=== PATIENT | female | born 1975 | race Hispanic/Latino ===

== ENCOUNTER 2017-12-26 16:34 | Inpatient (IN) | payer OTHER ==
[~2017-12-26] VITALS: Ht 172.7 cm; Wt 90.7 kg
--- NOTE | 2017-12-26 17:15 | RADIOLOGY REPORT ---
EXAMINATION: CHEST 2 VIEWS CLINICAL INFORMATION: Cough, shortness of breath. COMPARISON: None. TECHNIQUE: PA and lateral views of the chest were obtained. FINDINGS: The cardiac silhouette is not enlarged. The mediastinal and hilar contours are unremarkable. There are neither pleural effusions nor pneumothoraces. There is a lateral segment right middle lobe infiltrate. The osseous structures are unremarkable. IMPRESSION: Lateral segment right middle lobe pneumonia. Recommendation is for a followup chest series to be obtained following treatment and/or resolution of symptoms to assure resolution of this appearance.
--- NOTE | 2017-12-26 17:26 | ED DYSPNEA/ASTHMA COMPLAINT ---
History of Present Illness General Chief Complaint: General Adult Stated Complaint: BIBA FOR PNEUMONIA Source: patient, family Exam Limitations: no limitations Vital Signs & Intake/Output Vital Signs & Intake/Output Vital Signs Date Time Temp Pulse Resp B/P B/P Pulse O2 O2 Flow FiO2 Mean Ox Delivery Rate 12/26 2220 98.5 76 18 108/70 90 Room Air 12/26 2156 Nasal 2.0L Cannula 12/26 2118 99.0 90 18 121/70 95 Room Air 12/26 1946 98.5 94 18 130/62 97 Room Air 12/26 1917 98 12/26 1644 98.8 86 15 103/70 98 Room Air Room Air ED Intake and Output 12/27 0000 12/26 1200 Intake Total 100 Output Total 200 Balance -100 Intake, Oral 100 Output, Urine 200 Patient 200 lb Weight Weight Reported by Patient Measurement Method Allergies Coded Allergies: ibuprofen (Intermediate, SWELLING AND HIVES 12/26/17) Reconcile Medications Amoxicillin/Potassium Clav (Amox-Clav 500-125 MG Tablet) 500 MG-125 MG TABLET 1 TAB PO TID ABX (Reported) Ondansetron (Zofran Odt) 4 MG TAB.RAPDIS 1 TAB SL TID PRN NAUSEA (Reported) Triage Note: PT BIBA FOR WORSENING SYMPTOMS OF PNEUMONIA. PT DIAGNOSED WITH PNA AT [facility] ON SUNDAY AND STARTED ON AUGMENTIN SUNDAY AND REPORTS SHE IS NOT FEELING ANY BETTER. HX OF PE IN PAST. Triage Nurses Notes Reviewed? yes Onset: Gradual Duration: day(s): Timing: recent history Severity: moderate : No Patient currently breastfeeds: No HPI: 42 yo female with hx of asthma, PNA, PE presents to ED for worsening of pneumonia symptoms and body pain. She was previously diagnosed with CAP after a visit to the ED on sunday and was given augmentin to take TID. She has been taking the medication since Sunday and denies getting any better. Today she presents with a constant pressure in her head and sinus since Sunday that radiates down to her neck, shoulders, and right arm with a sharp shooting pain. Patient admits that she has been vomiting since Sunday with up to three episodes per day. The vomit has been yellow in consistency and happens when she tries to eat. She has taken zofran for the nausea/vomiting this morning with some relief. Patient states that she has not been able to eat since Sunday but is able to tolerate liquids. She states that she also has dyspnea that gets worst with movement and talking. She also admits to having one episode of diarrhea that started this morning that was loose watery and yellow in color. She has a sharp pain in her back that gets worst with increased urination that started recently. She describes the pain as a burning sensation. Reports a productive cough with yellow flem along with chest pain. Admits to dizziness, nausea, fever, chills, cough, abdominal pain in her middle lower epigastrum, SOB, cough, diarrhea, fatigue, tinnitus, back pain, and dyspnea. She has tried taking nyquil and tylenol with codeine with no improvment. States that her daughter is recovering from a cough that she had recently before her symptoms started. (Mehreen Jackson) Past History Travel History Traveled to [place] past 21 day No Medical History Any Pertinent Medical History? see below for history Neurological: SPINAL MENINGITIS Cardiovascular: PE Respiratory: PNA Surgical History Surgical History: non-contributory Psychosocial History What is your primary language Icelandic Tobacco Use: Quit >30 days ago Family History Hx Contributory? No (Mehreen Jackson) Review of Systems Review of Systems Constitutional: Reports: see HPI, chills, fever, malaise, weakness. EENTM: Reports: see HPI, throat pain. Respiratory: Reports: see HPI, cough, short of breath, sputum production, wheezing. Cardiovascular: Reports: see HPI, chest pain. GI: Reports: see HPI, abdominal pain, diarrhea, nausea, vomiting. Genitourinary: Reports: see HPI, dysuria, frequency. Musculoskeletal: Reports: see HPI, back pain, joint pain, neck pain. Skin: Reports: no symptoms. Neurological/Psychological: Reports: see HPI, headache, tingling, weakness. Hematologic/Endocrine: Reports: no symptoms. Immunologic/Allergic: Reports: no symptoms. All Other Systems: Reviewed and Negative (Mehreen Jackson) Physical Exam Physical Exam General Appearance: well developed/nourished, alert, awake Head: atraumatic, normal appearance Eyes: Bilateral: normal appearance, PERRL, EOMI. Ears, Nose, Throat: normal pharynx, normal ENT inspection, hearing grossly normal Neck: normal inspection, supple, full range of motion Respiratory: bilateral expiratory wheezing, R>L, speaking is broken sentences Cardiovascular: tachycardia Gastrointestinal: normal bowel sounds, soft, no organomegaly, Mild diffuse tenderness without gaurding Extremities: normal inspection, normal range of motion Neurologic/Psych: awake, alert, oriented x 3 Skin: intact, normal color Core Measures ACS in differential dx? Yes CVA/TIA Diagnosis No Sepsis Present: No Sepsis Focused Exam Completed? No (Shruthi TOTH,Mehreen Carlton) Progress Differential Diagnosis: asthma, AMI, bronchitis, COPD, musculoskeletal pain, pericarditis, pulmonary embolism, pneumonia, unstable angina Plan of Care: Orders Procedure Date/time Status Full Liquid Diet 12/27 B Active CBC WITHOUT DIFFERENTIAL 12/27 599 Active BASIC ELECTROLYTES PLUS BUN&CR 12/27 599 Active Lab Add-on Test 12/26 2314 Active CULTURE,STOOL 12/26 230 Active LOWER RESPIRATORY CULTURE 12/26 2302 Active C.DIFFICILE 12/26 230 Active TRC EVALUATION (GEN) 12/26 230 Active OXYGEN SETUP (GEN) 12/26 230 Active Saline Lock 12/26 230 Active Pathway - chart 12/26 2300 Active House Staff 12/26 2301 Active Code Status 12/26 2301 Active STREP PNEUMO URINARY ANTIGEN 12/26 221 Complete LEGIONELLA URINARY ANTIGEN 12/26 2215 Complete Weight 12/26 2152 Active Vital Signs 12/26 2152 Active Teach/Educate 12/26 215 Active Pain Treatment and Response 12/26 215 Active Nutritional Intake, Monitor 12/26 215 Active Isolation 12/26 215 Active Intake & Output 12/26 215 Active Patient Care Conference 12/26 215 Active Activity/Ambulation 12/26 2152 Active Patient Data 12/26 2038 Active Weight 12/26 2014 Complete LACTIC ACID 12/26 194 Complete OXYGEN SETUP (GEN) 12/26 1914 Active Saline Lock 12/26 191 Active Admit to inpatient 12/26 191 Active Vital Signs 12/26 191 Active Activity/Ambulation 12/26 1914 Active Code Status 12/26 1914 Complete URINALYSIS 12/26 1802 Complete VIT D 25 HYDROXY 12/26 1731 Active TOTAL IRON BINDING CAPACITY 12/26 1731 Active FOLIC ACID 12/26 1731 Active FERRITIN 12/26 1731 Active SERUM IRON 12/26 1731 Active VITAMIN B12 12/26 1731 Active Intake & Output 12/26 1656 Active D-DIMER 12/26 1655 Complete BLOOD CULTURE 12/26 1642 Active TROPONIN LEVEL 12/26 1642 Active COMPREHENSIVE METABOLIC PANEL 12/26 1642 Active CBC WITHOUT DIFFERENTIAL 12/26 1642 Complete EKG 12/26 1642 Active SPUTUM INDUCTION (GEN) 12/26 UNK Active Lab Add-on Test 12/26 UNK Active VTE Mechanical Prophylaxis 12/26 UNK Complete VTE Mechanical Prophylaxis 12/26 UNK Active Vital Signs 12/26 UNK Complete MISTAKE 12/26 UNK Active Intake & Output 12/26 UNK Complete Hemoccult 12/26 UNK Active Heat/Cold Therapy 12/26 UNK Active Activity/Ambulation 12/26 UNK Active Current Medications Sig/Alexi Start time Last Medication Dose Stop Time Status Admin Azithromycin 500 MG DAILY 12/27 899 AC (Zithromax) Sodium Chloride 250 ML (Normal Saline 0.9%) Ceftriaxone Sodium 1,000 MG DAILY 12/27 899 AC (Rocephin) Enoxaparin Sodium 40 MG DAILY 12/27 899 AC (Lovenox) Enoxaparin Sodium 40 MG DAILY 12/27 899 CAN (Lovenox) Albuterol Sulfate 3 ML Q4-6 PRN PRN 12/26 2315 AC (Proventil) Ipratropium [place] 2.5 ML Q4-6 PRN PRN 12/26 2315 AC (Atrovent) Acetaminophen 650 MG Q6P PRN 12/260 AC (Tylenol) Acetaminophen 1,000 MG Q6P PRN 12/26 2300 AC (Ofirmev) Dextrose/Sodium 1,000 ML .Q8H 12/26 2300 AC 12/26 Chloride 2315 (D5-Normal Saline) Lidocaine 1 PAT Q24H PRN 12/26 2299 AC (Lidoderm) Ondansetron HCl 4 MG Q8P PRN 12/26 2300 AC (Zofran) Polyethylene Glycol 17 GM AT BEDTIME PRN 12/26 2299 AC (Miralax) Senna/Docusate Sodium 1 TAB AT BEDTIME PRN 12/26 230 AC (Senokot S) Laboratory Tests 12/26/17 2215: Urinalysis LIGHT H, Urine Color YEL, Urine Clarity HAZY H, Urine pH 6.0, Ur Specific [place] >= 1.030, Urine Protein NEG, Urine Ketones NEG, Urine Nitrite NEG, Urine Bilirubin NEG, Urine Urobilinogen 0.2, Ur Leukocyte Esterase NEG, Ur Microscopic SEDIMENT EXAMINED, Urine RBC 1-3, Urine WBC 1-3 H, Ur Epithelial Cells MOD H, Urine Hemoglobin TRACE-INTACT, Urine Glucose NEG 12/26/17 1804: Lactic Acid 1.7 12/26/17 173: Anion Gap 14, Estimated GFR > 60, BUN/Creatinine Ratio 10.0, Glucose 89, Calcium 9.7, Iron 25 L, TIBC 450, Ferritin 6.5, Total Bilirubin 0.3, AST 22, ALT 21, Alkaline Phosphatase 72, Troponin I < 0.01, Total Protein 7.3, Albumin 4.4, Globulin 2.9, Albumin/Globulin Ratio 1.5, Vitamin B12 Pending, 25-OH Vitamin D Total Pending, Folate Pending, D-Dimer High Sensitivty 231, CBC w Diff NO MAN DIFF REQ, RBC 4.27, MCV 74.0 L, MCH 23.8 L, MCHC 32.1 L, RDW 18.1 H, MPV 8.4 , Gran % 60.5, Lymphocytes % 23.5, Monocytes % 11.4 H, Eosinophils % 4.1, Basophils % 0.5, Absolute Granulocytes 5.2, Absolute Lymphocytes 2.0, Absolute Monocytes 1.0 H, Absolute Eosinophils 0.4, Absolute Basophils 0 Microbiology 12/26 2301 LOWER RESP: Respiratory Culture - ORD 12/26 2301 LOWER RESP: Gram Stain - ORD 12/26 2301 STOOL: Clostridium difficile Toxin A & B - ORD 12/26 2301 STOOL: Stool Culture - ORD 12/26 2214 URINE ROUT: Legionella Antigen - COMP 12/26 2214 URINE ROUT: Streptococcus pneumoniae Antigen (M - COMP 12/26 1732 BLOOD: Blood Culture - RECD 12/26 1730 BLOOD: Blood Culture - RECD Chest x-ray shows right-sided pneumonia. Patient appears ill although she is afebrile. When she ambulates her O2 saturation drops to 87% on room air. Patient has had worsening symptoms despite Augmentin. She does have a significant past medical history of previous pneumonia and previous PE however today d-dimer is negative. EKG is stable in sinus rhythm. The patient's right- sided chest pain is reproducible on physical exam. Given the patient's active pneumonia with oxygen desaturation and her dyspnea hospital admission for IV antibiotics is appropriate. The patient does have urinary symptoms however unable to give a urine sample here in the emergency department, will have to follow-up with UA will patient is admitted. Discussed findings with hospitalist, Dr. Aquino, regarding general medicine admission. Diagnostic Imaging: Viewed by Me: Radiology Read. Discussed w/RAD: Radiology Read. Radiology Impression: PATIENT: CURTIS YOO PRESENT AGE: 42 PATIENT ACCOUNT NO: [id number] : 76 LOCATION: [facility] [place] ORDERING PHYSICIAN: Dallas TOTH SERVICE DATE: 12/26/17 EXAM TYPE: RAD - XRY-CHEST XRAY, TWO VIEWS EXAMINATION: CHEST 2 VIEWS CLINICAL INFORMATION: Cough , shortness of breath. COMPARISON: None. TECHNIQUE: PA and lateral views of the chest were obtained. FINDINGS: The cardiac silhouette is not enlarged. The mediastinal and hilar contours are unremarkable. There are neither pleural effusions nor pneumothoraces. There is a lateral segment right middle lobe infiltrate. The osseous structures are unremarkable. IMPRESSION: Lateral segment right middle lobe pneumonia. Recommendation is for a followup chest series to be obtained following treatment and/or resolution of symptoms to assure resolution of this appearance. DICTATED BY: Elian Garcia MD DATE/TIME DICTATED:12/26/171710 SYSTEMS TRAINER:LACEY DATE/TIME TRANSCRIBED:12/26/171710 CONFIDENTIAL, DO NOT COPY WITHOUT APPROPRIATE AUTHORIZATION. <Electronically signed in Other Vendor System> SIGNED BY: Elian Garcia MD 12/26/171714 Initial ED EKG: sinus rhythm @84bpm (Shruthi TOTH,Mehreen Carlton) Departure Departure Disposition: STILL A PATIENT Condition: Stable Clinical Impression Primary Impression: Pneumonia Qualifiers: Pneumonia type: due to unspecified organism Laterality: right Lung location: middle lobe of lung Qualified Code: J18.1 - Lobar pneumonia, unspecified organism Secondary Impressions: Nausea vomiting and diarrhea Referrals: Dorothy Vega (PCP/Family) Departure Forms: Customer Survey General Discharge Information Admission Note Spoke With: Yanni Aquino MD Documentation of Exam: Documentation of any treatments & extenuating circumstances including Concerns Regarding Discharge (functional status, medication knowledge or non-compliance, living conditions, etc.) that warrant an admission rather than observation: [ Pneumonia with worsening dyspnea and right-sided chest pain despite use of Augmentin, oxygen desaturation with ambulation requiring IV antibiotics, respiratory therapy treatments, follow-up with blood cultures, IV fluids, possible pulm consult, premature discharge medically unsafe.] (Shruthi TOTH,Mehreen Carlton) PA/LABEL PRINTING MACHINIST Co-Sign Statement Statement: ED Attending supervision documentation- x I saw and evaluated the patient. I have also reviewed all the pertinent lab results and diagnostic results. I agree with the findings and the plan of care as documented in the PA's/LABEL PRINTING MACHINIST's documentation. SOB, increased WOB, hypoxia [] I have reviewed the ED Record and agree with the PA's/LABEL PRINTING MACHINIST's documentation. [] Additions or exceptions (if any) to the PAs/LABEL PRINTING MACHINIST's note and plan are summarized below: [] (Deni MCCULLOUGH,Sina) Critical Care Note Critical Care Note Critical Care Time: non-applicable (Shruthi TOTH,Mehreen Carlton)
[2017-12-26 17:53] LABS: ABSOLUTE BASOPHIL COUNT 0 /CUMM (0.0-0.2); ABSOLUTE EOSINOPHIL COUNT 0.4 /CUMM (0.0-0.7); ABSOLUTE GRANULOCYTE CT 5.2 /CUMM (1.4-6.5); BASOPHIL % 0.5 % (0.0-2.0); EOSINOPHIL % 4.1 % (0-5); GRANULOCYTE % 60.5 % (42.2-75.2); HEMATOCRIT 31.6 % (37-47); MEAN CORPUSCULAR HGB 23.8 PG (27.0-31.0); MEAN CORPUSCULAR HGB CONC 32.1 G/DL (33.0-37.0); MEAN PLATELET VOLUME 8.4 FL (7.4-10.4); PLATELET COUNT 463 /CUMM (130-400); RBC DISTRIBUTION WIDTH 18.1 % (11.5-14.5); RED BLOOD CELL CT 4.27 /CUMM (4.20-5.40); WHITE BLOOD CELL COUNT 8.6 /CUMM (4.8-10.8)
--- NOTE | 2017-12-26 20:39 | History & Physical ---
Jamal Miller 12/26/172038: General Information and HPI MD Statement: I have seen and personally examined CUTRIS YOO and documented this H&P. The patient is a 42 year old F who presented with a patient stated chief complaint of [Shortness of breath & malaise]. Source of Information: patient Exam Limitations: no limitations History of Present Illness: 42 year old female with remote history of spinal meningitis recently diagnosed with community-acquired pneumonia at [facility] on 12/23/17, presenting with worsening shortness of breath, right-sided chest pain with inspiration, sinus pressure/headache and malaise. The chest pain is stabbing in nature and radiates to her right side with deep breaths. At baseline she is independent, but can no longer ambulate up a small flight of stairs at home without becoming short of breath. She has had an ongoing cough productive of yellow sputum, associated with abdominal pain upon forceful coughing. She has also been experiencing nausea and vomiting, and unable to keep down solid food for 2 days. She reports diarrhea that is yellow and watery in nature, also for the past 2 days. She denies sick contacts at home, did not receive a flu shot this year. Former smoker, 5-6 cigarettes per day on and off for ~20 years and quit 3 months ago. Allergies/Medications Allergies: Coded Allergies: ibuprofen (Intermediate, SWELLING AND HIVES 12/26/17) Home Med list Amoxicillin/Potassium Clav (Amox-Clav 500-125 MG Tablet) 500 MG-125 MG TABLET 1 TAB PO TID ABX (Reported) Ondansetron (Zofran Odt) 4 MG TAB.RAPDIS 1 TAB SL TID PRN NAUSEA (Reported) Compliance With Home Meds: GOOD Past History Travel History Traveled to [place] past 21 day No Medical History Neurological: SPINAL MENINGITIS Cardiovascular: PE Respiratory: PNA Surgical History Surgical History: non-contributory Review of Systems Review of Systems Constitutional: Reports: fever, malaise, weakness. Denies: chills, diaphoresis. Cardiovascular: Reports: chest pain (R-sided, w/ deep inspiration). Denies: edema. Respiratory: Reports: cough, short of breath, sputum production. Denies: hemoptysis. GI: Reports: abdominal pain, diarrhea (yellowish and watery), nausea, vomiting. Genitourinary: Reports: frequency. Musculoskeletal: Reports: neck pain. Neurological/Psychological: Reports: headache. Exam & Diagnostic Data Last 24 Hrs of Vital Signs/I&O Vital Signs Date Time Temp Pulse Resp B/P B/P Pulse O2 O2 Flow FiO2 Mean Ox Delivery Rate 12/26 2118 99.0 90 18 121/70 95 Room Air 12/26 1946 98.5 94 18 130/62 97 Room Air 12/26 1917 98 12/26 1644 98.8 86 15 103/70 98 Room Air Room Air Physical Exam General Appearance Alert, Oriented X3, Cooperative, Mild Distress HEENT Atraumatic, PERRLA, EOMI, Mucous Membr. moist/pink Cardiovascular Regular Rate, Normal S1, Normal S2 Lungs Rales and crackles throughout, decreased air movement at bilateral bases Abdomen Normal Bowel Sounds, Soft, Tenderness on r side, along with r-sided cva tenderness Neurological Strength at 5/5 X4 Ext, Sensation Intact Extremities No Clubbing, No Cyanosis, No Edema, Normal Pulses Last 24 Hrs of Labs/Misael: Laboratory Tests 12/26/17 1804: Lactic Acid 1.7 12/26/171730: Anion Gap 14, Estimated GFR > 60, BUN/Creatinine Ratio 10.0, Glucose 89, Calcium 9.7, Total Bilirubin 0.3, AST 22, ALT 21, Alkaline Phosphatase 72, Troponin I < 0.01, Total Protein 7.3, Albumin 4.4, Globulin 2.9, Albumin/Globulin Ratio 1.5, D-Dimer High Sensitivty 231, CBC w Diff NO MAN DIFF REQ, RBC 4.27, MCV 74.0 L, MCH 23.8 L, MCHC 32.1 L, RDW 18.1 H, MPV 8.4, Gran % 60.5, Lymphocytes % 23.5 , Monocytes % 11.4 H, Eosinophils % 4.1, Basophils % 0.5, Absolute Granulocytes 5.2, Absolute Lymphocytes 2.0, Absolute Monocytes 1.0 H, Absolute Eosinophils 0.4, Absolute Basophils 0 Microbiology 12/26 1732 BLOOD: Blood Culture - RECD 12/26 1730 BLOOD: Blood Culture - RECD Diagnostic Data CXR Results Lateral segment right middle lobe pneumonia. Recommendation is for a followup chest series to be obtained following treatment and/or resolution of symptoms to assure resolution of this appearance. Assessment/Plan Assessment: 42 year old female with community-acquired pneumonia, did not respond to outpatient treatment. She is afebrile and without leukocytosis after 2.5 days of PO Augmentin therapy, in the setting of worsening symptoms, including 87% ambulatory spO2 in the ED. CXR showed lateral segment right middle lobe pneumonia. Problems: 1. Community acquired pneumonia 2. Diarrhea 3. Microcytic anemia Plan: -Admit to General Medicine -Continue IV Rocephin and Azithromycin -Sputum culture -Duonebs Q4-6H PRN SOB, cough/wheezing -Consider CT Chest if not improving in the morning -Flu shot -D5W-NS 125mL/hr -Stool C-Diff -Stool guiac & iron profile -Full Code -Regular diet -ALPS & Lovenox DVT prophylaxis As Ranked By This Provider Problem List: 1. Pneumonia Qualifiers Pneumonia type: due to unspecified organism Laterality: right Lung location: middle lobe of lung Qualified Code: J18.1 - Lobar pneumonia, unspecified organism 2. Nausea vomiting and diarrhea Core Measures/Misc (12/31) Acute Coronary Syndrome ACS Diagnosis: No Congestive Heart Failure Congestive Heart Failure Diagnosis No Cerebrovascular Accident CVA/TIA Diagnosis: No VTE (View Protocol) VTE Risk Factors Age>40 No Mechanical VTE Prophylaxis d/t N/A MechProphylax Ordered No VTE Pharm Prophylaxis d/t NA PharmProphylax ordered Sepsis (View protocol) Sepsis Present: No If YES complete Sepsis Event Note If YES complete Sepsis Event Note Danielle Baldwin MD 12/26/17 3263: Core Measures/Misc (12/31) Sepsis (View protocol) If YES complete Sepsis Event Note If YES complete Sepsis Event Note Resident Review Statement Resident Statement: examined this patient, discussed with analytics intern, agreed with analytics intern, reviewed EMR data (avail), amended to note Other Findings: Patient is a 42-year-old female with past medical history of spinal meningitis, pulmonary embolism, recently diagnosed with pneumonia on 12/23 presenting today dictation ED with complaints of worsening cough, dyspnea, chest pain. Patient reports that 4 days prior to admission she was seen in emergency room at [facility] at which time she was diagnosed with community-acquired pneumonia and was sent home on Augmentin 3 times a day. Patient reports that she has not been feeling better and reports worse over the past few days which is what brought her to the ED today. States that over the past 3 days she has had a productive cough with yellow sputum, dyspnea on exertion and chest pain. Patient characterizes the chest pain as right-sided stabbing pain that radiates to her flank which worsens with inspiration and with movement. Patient also reports his pressure along with pain that radiates down her neck, shoulders and right arm. Patient reports a three-day history of nausea and vomiting. States she has only been able to keep down water and toney richard. Reports multiple episodes of nonbilious, nonbloody emesis. Also states that she has had a one- day history of diarrhea described as yellow, foul-smelling, nonbloody watery bowel movements accompanied with abdominal pain. Reports fever (MAXIMUM TEMPERATURE of 103 4 days ago), chills, dizziness, fatigue, back pain. Patient reports that she has had increased urinary frequency. Denies any dysuria or hematuria. Reports that she has been trying to stay hydrated and has been consuming a lot more water than unusual. Patient states that she has been taking Vanco, DayQuil and Tylenol with codeine which has not helped. Past medical history as above Social history: Patient denies any sick contacts, reports that she has 2 kids recently had asthma exacerbations, states she quit smoking tobacco 2-3 months ago previously smoked 5-6 cigarettes per day mostly on the weekends along with alcohol consumption since the age of 18. Reports that she has quit drinking alcohol as well. States that she is otherwise healthy and active reports exercising daily. Medications: Augmentin, Tylenol with codeine, NyQuil, DayQuil Allergies: Ibuprofenreports swelling in his Patient in the ED received IV ceftriaxone, azithromycin, DuoNeb treatment, normal saline bolus 1, Zofran 4 mg IV 1 Vitals: MAXIMUM TEMPERATURE 98.8, heart rate 8016 94, respirations 15-18, blood pressure initially 103/70 after fluids went up to 130/62, saturating at 9897% at rest however with ambulation patient's oxygen saturation dropped to 87% on room air Gen.: Patient appears to be in moderate distress with increasing her breathing HEENT:EOMI, PERRLA, MMM, no sinus tenderness, no cervical or auricular lymphadenopathy CVS: RRR, S1 and S2, no murmurs, rubs or gallops appreciated Lungs: crackles heard over the right middle and lower lung base, remainder clear to auscultation Musc: tender to palpation over right chest Abd: soft, nt, nd, + bs Neuro: A&O x3, CN II-XII grossly intact, motor and sensation intact, strength in all four extremities 5/5 Ext: no edema, cyanosis or clubbing, normal pulses Labs and imaging as above Patient is a 42 y/o female with PMH of spinal mengingitis, PE (not on anticoagulation) and recently diagnosed with pneumonia presenting with failure of outpatient antibiotic treatment based on symptoms and desaturation of oxygen while ambulating. D-dimer is normal. Patient on admission remained afebrile with normal WBC and normal lactic acid. In the ED patient received IV antibiotics and a duoneb treatment which she reported improved her symptoms. Patient also reports n/v/d which may be secondary to the antibiotics. Will need to rule out c.dif. Patient's chest pain appears to be pleurtitic and musculoskeletal in nature. EKG was normal without any acute ST or T wave changes. Problems: 1. Acute Hypoxic Respiratory Failure 2/2 Right middle lobe pneumonia 2. Nause/Vomitting/Diarrhea- gastroenteritis vs medication side effect vs c.dif 3. Anorexia 4. Generalized Weakness 5. Microcytic Anemia 6. Mild thrombocytopenia - likely reactive due to anemia Plan: Admit to gen med IV Ceftriaxone and IV Azithromycin continued IV D51/2 NS @ 125 cc/hr IV Zofran PRN for nausea Full liquid diet and advance as tolerated Stool cultures and c.dif Follow up blood cultures Follow up sputum cultures Iron panel Repeat CBC and BEP in AM Urine strep and legionella Check for influenza TRC/DuoNeb q4-6 hr PRN Oxygen supplementation, wean off as tolerated PT/OT in AM Pain control with tylenol, heat/cold therapy, lidocaine patch PRN If patient's symptoms do not improve/worsen, consider obtaining CT Chest in AM Code: Full code Diet: full liquid diet, advance as tolerated DVT PPx: Eduardo RUTLEDGE MD,Yanni 12/27/17 0011: Core Measures/Misc (12/31) Sepsis (View protocol) If YES complete Sepsis Event Note If YES complete Sepsis Event Note Attending MD Review Statement Attending Statement Attending MD Statement: examined this patient, discuss w/resident/PA/GRANT COORDINATOR, agreed w/resident/PA/GRANT COORDINATOR, reviewed EMR data (avail), discussed with nursing, amended to note Attending Assessment/Plan: Patient is a 42-year-old female was recently discharged from the [facility] emergency room after she had presented there with complaints of shortness of breath and malaise 2 days prior to presenting here. She was reportedly diagnosed with a pneumonia and discharged home on Augmentin. Patient reports he is getting home symptoms have only worsened with increasing lethargy shortness of breath and chest discomfort on the right worse with deep respiration. She saw her primary care provider when she was promptly referred to the emergency room for evaluation as she continues to feel ill. Patient complains of cough productive of yellow phlegm. Shortness of breath. Right-sided chest discomfort. In the ER she maintain saturation on room air however she was reported to desaturate down to 87% while ambulating. She promptly improves at rest. She was hemodynamically stable and afebrile. Laboratory data did not reveal any leukocytosis. Chest x-ray did show lateral segment right middle lobe pneumonia. She was started on Rocephin/azithromycin in the emergency room referred to medical service for evaluation. On examination she complains of malaise. She does not appear to be in respiratory distress although she does look acutely ill. Heart sounds are regular with no audible murmur. She has adequate entry bilaterally with no added sounds. Abdomen soft and nontender. She has no peripheral edema. Problems: 1. Community-acquired pneumonia. 2. Asthma Plan: -It appears that her pneumonia has not been completely treated. Will admit to the inpatient medical service for further management. Intravenous antibiotic therapy with azithromycin and Rocephin. -In view of a history of asthma would recommend bronchodilator therapy with albuterol and Atrovent [id number]. She did report relief with bronchodilator therapy while in the ER. Will hold off systemic steroid therapy at present as she does not appear to be in bronchospasm. -She complained of loose bowel movements. This has not been persistent. Will check stool for C. difficile if persistent. -If symptoms do not improve adequately with IV antibiotic therapy would recommend chest CT for further evaluation of pulmonary parenchyma.
[2017-12-26] MEDS ORDERED: AMOX-CLAV 500-1 EACH PO (21:03)
[2017-12-26] MEDS ORDERED: ZOFRAN ODT4 M1 SL (21:03)
[2017-12-26 22:21] VITALS: BP 108/70
--- NOTE | 2017-12-27 00:12 | Admission Certification ---
Admission Certification Certification Statement - As attending physician, I certify that at the time of - admission, based on clinical presentation, severity of - symptoms, need for further diagnostic testing and - therapeutic interventions, and risk of adverse outcomes - without in-hospital treatment, in my clinical assessment, - this patient requires an acute hospital stay for a minimum - of two nights or longer. I have also considered psychsocial - factors such as support system, advanced age, financial - issues, cognitive issues, and failed out-patient treatments, - past re-admission history, safety of patient, and lack of - compliance as applicable. Specific rationale supporting this admission is: Patient has been hospitalized for further management of her pneumonia.
[2017-12-27 06:23] VITALS: BP 108/60
--- NOTE | 2017-12-27 08:07 | PN- Housestaff ---
Peter De Anda 12/27/17 0807: Subjective Follow-up For: Community-acquired pneumonia Asthma Diarrhea Subjective: Patient seen and examined at bedside. According to the patient she said she having no more loose motion her last bowel movement was yesterday. She is still nauseated and complaining of pain in chest while coughing. She also complaining of yellow colored sputum production. She denies fever, chills, abdominal pain, diarrhea, constipation, burning micturition. Review of Systems Constitutional: Reports: see HPI. Objective Last 24 Hrs of Vital Signs/I&O Vital Signs Date Time Temp Pulse Resp B/P B/P Pulse O2 O2 Flow FiO2 Mean Ox Delivery Rate 12/27 1059 Nasal 2.0L Cannula 12/27 1058 96 Nasal 2.0L Cannula 12/27 0800 Nasal 2.0L Cannula 12/27 0623 98.3 85 18 108/60 97 Nasal Cannula 12/26 2221 98.5 76 18 108/70 90 Room Air 12/26 2157 Nasal 2.0L Cannula 12/26 2119 99.0 90 18 121/70 95 Room Air 12/26 1946 98.5 94 18 130/62 97 Room Air 12/26 1917 98 12/26 1644 98.8 86 15 103/70 98 Room Air Room Air Intake & Output 12/27 1600 12/27 0800 12/27 0000 Intake Total 1240 100 Output Total 700 200 Balance 540 -100 Intake, IV 1000 Intake, Oral 240 100 Output, Urine 700 200 Patient 200 lb Weight Weight Reported by Patient Measurement Method Physical Exam General Appearance: Alert, Oriented X3, Cooperative, Mild Distress Lymphatic: Axillary nl, Cervical nl Cardiovascular: Regular Rate, Normal S1, Normal S2, No Murmurs, Gallops, Rubs Lungs: Clear to Auscultation, Normal Air Movement Abdomen: Normal Bowel Sounds, Soft, No Tenderness, No Hepatospenomegaly, No Masses Extremities: No Clubbing, No Cyanosis, No Edema, Normal Pulses, No Tenderness/ Swelling Assessment/Plan Assessment: 42-year-old female with past medical history with no significant past medical history sent by her primary care physician to [place] emergency department for further evaluation and workup community-acquired pneumonia. According to the patient on last Sunday she started developed cough with yellow sputum production , nausea, loose motion and chest pain. She went to the emergency department and started taking Augmentin and Zofran for community-acquired pneumonia and nausea. But the patient condition did not improved and he was referred to emergency. At the time of presentation to emergency department vitals and labs are given below Vitals: Blood pressure 108/70, temperature 98.5, pulse rate 76, respiratory rate 18 oxygen saturation 97% Labs: WBC 8.6, hemoglobin/hematocrit 10.1/31.6, MCV 74, platelet 473 Sodium 137, chloride 103, anion gap 14, bun 7, creatinine 0.7, GFR more than 60, glucose 89 Problems: 1. Community acquired pneumonia 3. Iron deficiency anemia secondary to menorrhagia 4. History of asthma 5. C. difficile colitis Plan: *Community acquired pneumonia: Patient having history of productive cough, with yellow color sputum, loose motion, nausea, chest pain, chills, and x-ray finding of right lung infiltration. -All the above findings are suggestive community-acquired pneumonia -Sputum culture grew gram-negative delilah and gram-positive cocci may be this is contamination of specimen -Patient is still symptomatic although his vomiting and diarrhea settled down -CT chest without IV contrast explained to look for further pathology -She is on 2 L of oxygen maintaining saturation of 94 -IV hydration started -We started her on ceftriaxone and azithromycin IV -Injection Zofran is given for nausea -We will follow further Iron deficiency anemia secondary to menorrhagia: -Patient having history of menorrhagia -Left shows microcytosis, decrease iron, decreased ferritin and increased TIBC level and low hemoglobin -Which is in favor of iron deficiency anemia -Patient seen [employer] and oncologist Dr. Jacobs 2 year ago he assured that she had no blood malignancy -We will continue her iron supplement -transvaginal ultrasound to look for fibroids? -Vitamin D level is low we will start on vitamin D supplement History of asthma: -on clinical exam patien having no wheeze on ausculataion -According to the patient she said I use her rescue inhaler when I got shortness of breath with season change -She last time use rescue inhaler 2 year ago -We will continue her bronchodilator -We will follow for further recommendation C. difficile colitis *Patient having history of diarrhea and currently is of antibiotic *Will wait for workup for C. difficile toxin *Will treat accordingly after report *Will follow on all reports, labs, blood cultures. *GI DVT prophylaxis *Full code Problem List: 1. Pneumonia 2. Nausea vomiting and diarrhea Pain Ratin Pain Location: Right side of the chest Pain Goal: Remain pain free Pain Plan: Pain management pathway Tomorrow's Labs & Rationales: CBC, BEP, Mat,Vinicio 12/27/17 1034: Attending MD Review Statement Attending Statement Attending MD Statement: examined this patient, discuss w/resident/PA/FREELANCE PHOTOGRAPHER, agreed w/resident/PA/FREELANCE PHOTOGRAPHER, discussed with family, reviewed EMR data (avail), discussed with nursing, discussed with case mgmt, reviewed images, amended to note Attending Assessment/Plan: 42-year-old female with no significant pmh comes with cough, shortness of breath on exertion, hypoxemia and right middle lobe consolidation. She contiues to be on 2l oxygen supplementation with minimal use of accessory muscles. Hemodynamically stable. Problems: 1. Community-acquired pneumonia. 2. Asthma 3. Nausea Plan: -admit to gen med -broad spectrum abx -f/u cultures, send sputum sample if not sent. -bronchodilator therapy with albuterol and Atrovent [id number]. -Supportive care for nausea -If symptoms do not improve adequately with IV antibiotic therapy would recommend chest CT for further evaluation of pulmonary parenchyma.
[2017-12-27 08:37] LABS: ABSOLUTE BASOPHIL COUNT 0.1 /CUMM (0.0-0.2); ABSOLUTE EOSINOPHIL COUNT 0.4 /CUMM (0.0-0.7); ABSOLUTE GRANULOCYTE CT 2.8 /CUMM (1.4-6.5); ABSOLUTE LYMPH COUNT 1.5 /CUMM (1.2-3.4); ABSOLUTE MONOCYTE COUNT 0.6 /CUMM (0.10-0.60); EOSINOPHIL % 6.7 % (0-5); GRANULOCYTE % 53.7 % (42.2-75.2); HEMATOCRIT 27.2 % (37-47); MEAN CORPUSCULAR HGB 23.9 PG (27.0-31.0); MEAN CORPUSCULAR HGB CONC 32.4 G/DL (33.0-37.0); MEAN CORPUSCULAR VOLUME 73.8 FL (81.0-99.0); MEAN PLATELET VOLUME 8.4 FL (7.4-10.4); PLATELET COUNT 428 /CUMM (130-400); RBC DISTRIBUTION WIDTH 18.1 % (11.5-14.5); RED BLOOD CELL CT 3.68 /CUMM (4.20-5.40); WHITE BLOOD CELL COUNT 5.3 /CUMM (4.8-10.8)
[2017-12-27 15:00] VITALS: BP 98/58
--- NOTE | 2017-12-27 17:02 | CT SCAN REPORT ---
EXAMINATION: CT CHEST WITHOUT CONTRAST CLINICAL INFORMATION: Shortness of breath. Question pleural effusion. Presumptive diagnosis of pneumonia. COMPARISON: Chest x-ray dated 12/26/2017. TECHNIQUE: Multidetector volumetric CT imaging of the chest was obtained noncontrast. Sagittal and coronal reformations were obtained. DLP: 235.32 mGy-cm. FINDINGS: LUNGS: Lungs bilaterally symmetrically expanded. There is dense peribronchial vascular consolidation seen in the right lower lobe with more diffuse patchy groundglass and reticular nodular opacity in the inferior right lower lobe, suspicious for a right lower lobe pneumonia. Associated air bronchograms are seen. The airways remain patent and no significant mucous plugging is seen. No definite central obstructing mass is seen, though evaluation is limited on noncontrast exam. No associated right-sided pleural effusion is seen. There are minimal reticular nodular and groundglass opacities seen in the central and medial right middle lobe, possibly related to subtle infection versus atelectatic change. There is also dependent groundglass opacity in the inferior left lower lobe, most consistent with subsegmental atelectasis. No effusion or pneumothorax. Central airways patent. LYMPHOVASCULAR STRUCTURES: Aortic and heart size normal. No pericardial effusion. Incidentally noted is separate origin of the left vertebral artery from the aortic arch. No mediastinal, hilar or axillary adenopathy or free fluid collection. THYROID GLAND: Unremarkable to the extent included. UPPER ABDOMEN: There is a 1.1 cm accessory splenule seen in the splenic hilar region. In the left lobe of the liver is enlarged, extending across the midline to the left upper quadrant. Included portions of the solid organs in the upper abdomen otherwise unremarkable on noncontrast study. Postcholecystectomy aden partially included. BONES: No suspicious focal findings. IMPRESSION: 1. Findings in the right lower lobe are consistent with a pneumonia. There may be subtle extension of disease into the medial segment of the right middle lobe versus atelectatic change. Findings correspond to the plain film appearance. Follow-up chest x-ray is recommended posttreatment to document resolution of findings. 2. No associated parapneumonic right-sided pleural effusion is seen. 3. As discussed above, no definite central obstructing mass or adenopathy is seen, though evaluation is limited on noncontrast study. 4. Dependent atelectatic changes in the left lower lobe.
[2017-12-27 22:35] VITALS: BP 118/74
[2017-12-28 06:24] VITALS: BP 114/66
--- NOTE | 2017-12-28 07:11 | PN- Housestaff ---
Peter De Anda 12/28/17 0711: Subjective Follow-up For: CAP Iron deficiency anemia secondary to menorrhagia Nusea vommiting diarrhea Subjective: Patient seen and examined on bedside. She is still complaining of chest pain with breathing and coughing. She also complaining of nausea and she saying its difficult for me to eat or drink more because i feel nauseatied. She denies fever, chills, palpitaion, abdominla pain, diarrhea, constipation and burning micturation. Review of Systems Constitutional: Reports: see HPI. Objective Last 24 Hrs of Vital Signs/I&O Vital Signs Date Time Temp Pulse Resp B/P B/P Pulse O2 O2 Flow FiO2 Mean Ox Delivery Rate 12/28 0624 98.1 83 20 114/66 99 Nasal Cannula 12/28 0000 Nasal 2.0L Cannula 12/27 2235 98.3 69 20 118/74 98 Nasal 2.0L Cannula 12/27 1910 97 Nasal 2.0L Cannula 12/27 1600 Nasal 2.0L Cannula 12/27 1500 97.5 70 20 98/58 98 12/27 1059 Nasal 2.0L Cannula 12/27 1058 96 Nasal 2.0L Cannula 12/27 0800 Nasal 2.0L Cannula Intake & Output 12/28 0800 12/28 0000 12/27 1600 Intake Total 1360 1315 1490 Output Total Balance 1360 1315 1490 Intake, IV 3746 999 1810 Intake, Oral 360 440 480 Physical Exam General Appearance: Alert, Oriented X3, Cooperative, No Acute Distress, Mild Distress Cardiovascular: Regular Rate, Normal S1, Normal S2, No Murmurs, Gallops, Rubs Lungs: MIld Decrease air entery on both lungs bases Abdomen: Normal Bowel Sounds, Soft, No Tenderness, No Hepatospenomegaly, No Masses Neurological: Normal Speech, Strength at 5/5 X4 Ext, Normal Tone, Sensation Intact, Cranial Nerves 3-12 NL, Reflexes 2+ Extremities: No Clubbing, No Cyanosis, No Edema, Normal Pulses, No Tenderness/ Swelling Assessment/Plan Assessment: 42-year-old female with past medical history with no significant past medical history sent by her primary care physician to [place] emergency department for further evaluation and workup community-acquired pneumonia. According to the patient on last Sunday she started developed cough with yellow sputum production , nausea, loose motion and chest pain. She went to the emergency department and started taking Augmentin and Zofran for community-acquired pneumonia and nausea. But the patient condition did not improved and he was referred to emergency. At the time of presentation to emergency department vitals and labs are given below Vitals: Blood pressure 108/70, temperature 98.5, pulse rate 76, respiratory rate 18 oxygen saturation 97% Labs: WBC 8.6, hemoglobin/hematocrit 10.1/31.6, MCV 74, platelet 473 Sodium 137, chloride 103, anion gap 14, bun 7, creatinine 0.7, GFR more than 60, glucose 89 CT chest: Right lower lobe infiltration LLU dependent atelectasis XRAY Chest: Right lower lobe infiltraion Problems List: 1. Community acquired pneumonia 3. Iron deficiency anemia secondary to menorrhagia 4. History of asthma Plan: Community acquired pneumonia: *Patient having history of productive cough, with yellow color sputum, loose motion, nausea, chest pain, chills, and x-ray finding of right lung infiltration, -All the above findings are suggestive community-acquired pneumonia -Sputum culture grew gram-negative delilah and gram-positive cocci may be this is contamination of specimen -Patient is still symptomatic although his vomiting and diarrhea settled down -CT chest without IV contrast explained to look for further pathology -She is on 2 L of oxygen maintaining saturation of 94 -IV Zofran for nausea -We will follow further -This morning a trail was given to titrate oxygen but on room air she got desat upto 84% -Will keep her on oxygen and will follow up furthur recommendation Iron deficiency anemia secondary to menorrhagia: -Patient having history of menorrhagia - Pertinent Labs are positive for microcytosis, decrease iron, decreased ferritin and increased TIBC level and low hemoglobin -Which is in favour of iron deficiency anemia -Patient seen estimator and drafter supervisor and oncologist Dr Jacobs * -According to the patient she had no blood disoreder -We will continue her iron supplement -transvaginal ultrasound to look for fibroids can be done on out patient basis -Vitamin D level is low we will start on vitamin D supplement Nausea , vommiting, diarrhea: - Patient nausea vommiting may be correlated with asthma -Her stool culture is negetive for difficile toxin -Her diarrhea subsided now but she is still nauseated and unable to eat properly *Will follow on all reports, labs, blood cultures. *GI DVT prophylaxis *Full code Problem List: 1. Pneumonia 2. Nausea vomiting and diarrhea Pain Ratin Pain Location: chest Pain Goal: Remain pain free Pain Plan: Pain management pathway Tomorrow's Labs & Rationales: cbc BEP Vinicio Rivero 12/28/17 1105: Attending Review Statement Attending Statement Attending MD Statement: examined this patient, discuss w/resident/PA/LADLE BUILDER, agreed w/resident/PA/LADLE BUILDER, discussed with family, reviewed EMR data (avail), discussed with nursing, discussed with case mgmt, reviewed images, amended to note Attending Assessment/Plan: 42-year-old female with no significant pmh comes with cough, shortness of breath on exertion, hypoxemia and right middle lobe consolidation. She continues to be on 2l oxygen supplementation with minimal use of accessory muscles. Hemodynamically stable. Tried to titrate off oxygen and she desaturates to 86% on room air. CT chest noted with consolidation in right middle lobe. Problems: 1. Community-acquired pneumonia. 2. Asthma 3. Nausea 4. Anemia microcytic with reported histroy of mennorhagia. Plan: -broad spectrum abx -f/u cultures, f/u final sputum -bronchodilator therapy -Supportive care for nausea -Contnue current care -gi/dvt prophylaxis
[2017-12-28 08:27] LABS: ABSOLUTE BASOPHIL COUNT 0.1 /CUMM (0.0-0.2); ABSOLUTE EOSINOPHIL COUNT 0.3 /CUMM (0.0-0.7); ABSOLUTE LYMPH COUNT 1.2 /CUMM (1.2-3.4); ABSOLUTE MONOCYTE COUNT 0.6 /CUMM (0.10-0.60); BASOPHIL % 1.1 % (0.0-2.0); EOSINOPHIL % 5.2 % (0-5); MEAN CORPUSCULAR HGB CONC 32.3 G/DL (33.0-37.0); MEAN CORPUSCULAR VOLUME 74.1 FL (81.0-99.0); MEAN PLATELET VOLUME 8.3 FL (7.4-10.4); PLATELET COUNT 437 /CUMM (130-400); RBC DISTRIBUTION WIDTH 18.5 % (11.5-14.5); RED BLOOD CELL CT 3.65 /CUMM (4.20-5.40); WHITE BLOOD CELL COUNT 5.1 /CUMM (4.8-10.8)
--- NOTE | 2017-12-28 13:34 | Discharge Summary ---
Visit Information Visit Dates Admission Date: 12/26/17 Discharge Date: 12/30/17 Hospital Course Course Attending Physician: Vinicio Rivero MD Primary Care Physician: Dorothy Vega Hospital Course: 42-year-old female with past medical history with no significant past medical history sent by her primary care physician to [place] emergency department for further evaluation and workup community-acquired pneumonia. According to the patient on last Sunday she started developed cough with yellow sputum production , nausea, loose motion and chest pain. Hospital course: * At the time of presentation to emergency department vitals and labs are given below Vitals: * Blood pressure 108/70, temperature 98.5, pulse rate 76, respiratory rate 18 oxygen saturation 97% Labs: * WBC 8.6, hemoglobin/hematocrit 10.1/31.6, MCV 74, platelet 473 * Sodium 137, chloride 103, anion gap 14, bun 7, creatinine 0.7, GFR more than 60, glucose 89 CT chest: * Right lower lobe infiltration with extention to right middle lobe. * LLL dependent atelectasis XRAY Chest: * Right lower lobe infiltraion She was treated for the following problems; 1. Community acquired pneumonia 3. Iron deficiency anemia secondary to menorrhagia 4. History of asthma Plan: Community acquired pneumonia: At the time of presentation patient having cough, nausea, vomiting, diarrhea and pleuritic chest pain. On x-ray there was right lower lobe and partial right middle lobe consolidation. CT scan showed consolidation in the right middle and right lower lobe. She was treated for community-acquired pneumonia with azithromycin and ceftriaxone. She took Unasyn on outpatient basis but did not respond. After a few days her sign and symptom improved. She discharged home on Keflex. *Iron deficiency anemia secondary to menorrhagia: * Will follow up with PCP on out patient basis * Will continue with iron supplement Nausea , vommiting, diarrhea: - -Her stool culture is negetive for difficile toxin -Her diarrhea, nausea, vomiting subsided now -She is ready to go home today. *Patient discharged Allergies: Coded Allergies: ibuprofen (Intermediate, SWELLING AND HIVES 12/26/17) Disposition Summary Disposition Principal Diagnosis: CAP Additional Diagnosis: Gastroenteritis Discharge Disposition: home or self care Discharge Instructions General Discharge Information Code Status: Full Code Patient's Diet: Regular diet Patient's Activity: selflimitid Follow-Up Instructions/Appts: Please follow up with priamary care physician in one week In case of medical attention please conatct with your priamary care physician Medications at Discharge Discharge Medications: Stop taking the following medications: Amoxicillin/Potassium Clav (Amox-Clav 500-125 MG Tablet) 500 MG-125 MG TABLET ORAL THREE TIMES DAILY Qty = 30 Ondansetron (Zofran Odt) 4 MG TAB.RAPDIS SUBLINGUAL THREE TIMES DAILY as needed for NAUSEA Qty = 10 Start taking the following new medications: Cephalexin (Keflex) 500 MG CAPSULE 1 Capsule ORAL THREE TIMES DAILY Qty = 15 No Refills Instructions: . Comments: NOT YET GIVEN IN HOSPITAL Azithromycin (Azithromycin) 500 MG TABLET 1 Tablet ORAL DAILY Qty = 1 No Refills Comments: IV GIVEN Last Taken: 12/30/17 Time: 8:58 AM Copies To: Dorothy Vega
--- NOTE | 2017-12-28 15:07 | Patient Discharge Instructions ---
Discharge Instructions General Discharge Information You were seen/treated for: Community-acquired pneumonia Diarrhea, nausea Watch for these problems: Blood in sputum, cough, chest pain, blood in urine, fever, chills, diarrhea, vomiting Special Instructions: Please follow-up with primary care physician in 1 week In case of medical attention please contact your primary care physician Please take your antibiotics as prescribed Diet Continue normal diet: Yes Activity Activity Self Limited: Yes Acute Coronary Syndrome Inclusion Criteria At DC or during hospital stay patient has or had the following: ACS DIAGNOSIS No Discharge Core Measures Meds if any: Prescribed or Continued at Discharge Meds if any: NOT Prescribed or Continued at Discharge Congestive Heart Failure Inclusion Criteria At DC or during hospital stay patient has or had the following: CHF DIAGNOSIS No Discharge Core Measures Meds if any: Prescribed or Continued at Discharge Meds if any: NOT Prescribed or Continued at Discharge Cerebrovascular accident Inclusion Criteria At DC or during hospital stay patient has or had the following: CVA/TIA Diagnosis No Discharge Core Measures Meds if any: Prescribed or Continued at Discharge Meds if any: NOT Prescribed or Continued at Discharge Venous thromboembolism Inclusion Criteria VTE Diagnosis No VTE Type NONE VTE Confirmed by (Test) NONE Discharge Core Measures - Per Current guidelines, there needs to be overlap - treatment for the first 5 days of Warfarin therapy. - If discharged on Warfarin prior to 5 days of - overlap therapy, the patient will need to be - assessed for post discharge needs including - *Post discharge parental anticoagulation - *Warfarin and/or parental anticoagulation education - *Follow up date to check INR post discharge At least 5 days overlap therapy as Inpatient No Meds if any: Prescribed or Continued at Discharge Note: Overlap Therapy is Warfarin and Anticoagulant Meds if any: NOT Prescribed or Continued at Discharge
--- NOTE | 2017-12-28 16:03 | CT SCAN REPORT ---
EXAMINATION: CT ANGIOGRAM OF THE CHEST WITH CONTRAST (CT PULMONARY ANGIOGRAM FOR PE) CLINICAL INFORMATION: Shortness of breath. COMPARISON: Noncontrast chest CT from 12/27/2017. TECHNIQUE: Prior to contrast administration, noncontrast localization images were obtained. Subsequently, multidetector volumetric imaging was performed from the thoracic inlet to below the diaphragms following the administration of 95 mL Optiray 350 intravenous contrast. No contrast reaction reported. Sagittal, coronal, and MIP oblique sagittal reformatted images were obtained on the CT workstation, uploaded to PACS, and reviewed. DLP: Total exam dose-length product 408 mGy-cm FINDINGS: QUALITY OF STUDY/CONTRAST BOLUS: Satisfactory. PULMONARY ARTERIES: Pulmonary arteries are normal in size. No embolic filling defects are identified within the main, lobar or proximal segmental vessels. The peripheral vessels are suboptimally evaluated due to respiratory motion affecting multiple images. THORACIC AORTA: Normal. LUNGS AND PLEURA: Persistent patchy airspace opacity in the right lower lobe is consistent with pneumonia. No disease progression compared to 12/27/2017. No pneumothorax or pleural effusion. CARDIOVASCULAR: The heart size is normal. No inward bowing of the interventricular septum. No pericardial effusion. MEDIASTINUM: The esophagus has normal wall thickness. The visualized portion of the thyroid gland is unremarkable. No mediastinal mass. LYMPHATICS: No pathologic sized axillary lymph nodes. Mildly enlarged lymph nodes at the right hilum, largest measuring 1.1 cm short axis dimension. No mediastinal lymphadenopathy. UPPER ABDOMEN: No acute abnormalities. No reflux of contrast into the inferior vena cava. OSSEOUS STRUCTURES: Unremarkable. IMPRESSION: - No evidence of pulmonary embolism. - Right lower lobe pneumonia associated with mild lymphadenopathy at the right hilum. No pleural effusion or other significant interval change compared to 12/27/2017.
[2017-12-28 22:12] VITALS: BP 120/60
[2017-12-29 06:05] VITALS: BP 118/62
--- NOTE | 2017-12-29 06:34 | PN- Housestaff ---
Peter De Anda 12/29/17 0634: Subjective Follow-up For: Community-acquired pneumonia Subjective: Patient seen and examined at bedside. Subjectively she is improved ovelall. She was complaining pain in left side of the chest last nigt one pain killer tablet is given. She is still feel nausea but she improved comapre to yesterday. She denies fever, chills, abdominal pain, diarrhea, constipation, burning micturition. Review of Systems Constitutional: Reports: see HPI. Objective Last 24 Hrs of Vital Signs/I&O Vital Signs Date Time Temp Pulse Resp B/P B/P Pulse O2 O2 Flow FiO2 Mean Ox Delivery Rate 12/29 220 95 Nasal 2.0L Cannula 12/29 2113 95 Nasal 2.0L Cannula 12/29 1600 Nasal 2.0L Cannula 12/29 1400 95 Room Air Room Air 12/29 1353 98.0 79 20 140/80 100 Nasal 2.0L Cannula 12/29 0821 96 Nasal 2.0L Cannula 12/29 0800 95 Nasal 2.0L Cannula 12/29 0605 98.6 74 20 118/62 97 Nasal 2.0L Cannula 12/29 0000 95 Nasal 2.0L Cannula Intake & Output 12/29 1600 12/29 0800 12/29 0000 Intake Total 860 480 390 Output Total Balance 860 480 390 Intake, IV 260 150 Intake, Oral 600 480 240 Physical Exam General Appearance: Alert, Oriented X3, Cooperative, No Acute Distress Cardiovascular: Normal S1, Normal S2 Lungs: Normal Air Movement Abdomen: Normal Bowel Sounds, Soft, No Tenderness Assessment/Plan Assessment: 42-year-old female with past medical history with no significant past medical history sent by her primary care physician to [place] emergency department for further evaluation and workup community-acquired pneumonia. According to the patient on last Sunday she started developed cough with yellow sputum production , nausea, loose motion and chest pain. She went to the emergency department and started taking Augmentin and Zofran for community-acquired pneumonia and nausea. But the patient condition did not improved and he was referred to emergency. At the time of presentation to emergency department vitals and labs are given below Vitals: Blood pressure 108/70, temperature 98.5, pulse rate 76, respiratory rate 18 oxygen saturation 97% Labs: WBC 8.6, hemoglobin/hematocrit 10.1/31.6, MCV 74, platelet 473 Sodium 137, chloride 103, anion gap 14, bun 7, creatinine 0.7, GFR more than 60, glucose 89 CT chest: Right lower lobe infiltration LLU dependent atelectasis XRAY Chest: Right lower lobe infiltraion Problems List: 1. Community acquired pneumonia 3. Iron deficiency anemia secondary to menorrhagia 4. History of asthma Plan: Community acquired pneumonia: * Patient sighn symptom ovel all improved. * She is stiill short of breath without oxygen * will keep her a day with oxygen * tomoorrow will give trial of oxygen if she were stable will discharge her home Iron deficiency anemia secondary to menorrhagia: * Will follow up with PCP on out patient basis * Will continue with iron supplement Nausea , vommiting, diarrhea: - -Her stool culture is negetive for difficile toxin -Her diarrhea subsided now but she is still nauseated but overall improved compare to yesterday *Will follow on all reports, labs, blood cultures. *GI DVT prophylaxis *Full code Problem List: 1. Pneumonia 2. Nausea vomiting and diarrhea Pain Ratin Pain Location: Chest Pain Goal: Remain pain free Pain Plan: Pain management pathway Tomorrow's Labs & Rationales: Anna HORNER, HANNA RiveroVinicio 12/29/17 1201: Attending MD Review Statement Attending Statement Attending MD Statement: examined this patient, discuss w/resident/PA/JACQUARD CARD LACER, agreed w/resident/PA/JACQUARD CARD LACER, discussed with family, reviewed EMR data (avail), discussed with nursing, discussed with case mgmt, reviewed images, amended to note Attending Assessment/Plan: Overall clinical improvement. CTA chest negative for PE after she reported chest pain pleuritic in nature. She is still requiring oxygen supplementation. SHe is OOB to chair and if she can walk with oxygen she would be candidate for discharge. Anticipate discharge tomorrow.
[2017-12-29 13:53] VITALS: BP 140/80
[2017-12-30 05:54] VITALS: BP 112/68
--- NOTE | 2017-12-30 08:37 | PN- Housestaff ---
See Addendum Subjective Follow-up For: Pneumonia Subjective: Patient was seen and examined at bedside. She is doing better. She did have trasient subjective chest pains last night. She was taken off of Oxygen this morning. Denies fever, chills , nausea. vomiting. Review of Systems Constitutional: Reports: see HPI. Objective Last 24 Hrs of Vital Signs/I&O Vital Signs Date Time Temp Pulse Resp B/P B/P Pulse O2 O2 Flow FiO2 Mean Ox Delivery Rate 12/30 0936 96 Room Air Room Air 12/30 0600 95 Nasal 2.0L Cannula 12/30 0554 97.9 67 20 112/68 97 Room Air 12/30 0000 95 Nasal 2.0L Cannula 12/29 2200 95 Nasal 2.0L Cannula 12/29 2113 95 Nasal 2.0L Cannula 12/29 1600 Nasal 2.0L Cannula 12/29 1400 95 Room Air Room Air 12/29 1353 98.0 79 20 140/80 100 Nasal 2.0L Cannula Intake & Output 12/30 1600 12/30 0800 12/30 0000 Intake Total 0 480 Output Total Balance 0 480 Intake, IV 0 Intake, Oral 0 480 Number 0 Bowel Movements Physical Exam General Appearance: Alert, Oriented X3, Cooperative, No Acute Distress Skin: No Rashes Neck: Supple Cardiovascular: Regular Rate, Normal S1, Normal S2, No Murmurs Lungs: diffuse bilateral wheezing Abdomen: Normal Bowel Sounds, Soft, No Tenderness, No Hepatospenomegaly Extremities: No Edema, Normal Pulses Assessment/Plan Assessment: 42-year-old female with past medical history with no significant past medical history sent by her primary care physician to [place] emergency department for further evaluation and workup community-acquired pneumonia. According to the patient on last Sunday she developed cough with yellow sputum production, nausea , loose motion and chest pain. Patient is admitted to the [facility] service after failed outpatient treatment with Augmentin. Chest CT IMPRESSION: 1. Findings in the right lower lobe are consistent with a pneumonia. There may be subtle extension of disease into the medial segment of the right middle lobe versus atelectatic change. Findings correspond to the plain film appearance. Follow-up chest x-ray is recommended posttreatment to document resolution of findings. 2. No associated parapneumonic right-sided pleural effusion is seen. 3. As discussed above, no definite central obstructing mass or adenopathy is seen, though evaluation is limited on noncontrast study. 4. Dependent atelectatic changes in the left lower lobe. Chest CTA IMPRESSION: - No evidence of pulmonary embolism. - Right lower lobe pneumonia associated with mild lymphadenopathy at the right hilum. No pleural effusion or other significant interval change compared to 12/27/2017. Problems List: 1. Community acquired pneumonia 2. Iron deficiency anemia secondary to menorrhagia 3. History of asthma Community acquired pneumonia: -No fever, white count overnight -Patient is off of Oxygen -The patient is symptom free at this time -Can be discharged home with Keflex 500 mg TIDx 5 days and Azithromcyin 500 mg once daily x 3 days Iron deficiency anemia secondary to menorrhagia: -Patient would need outpatient work up for anemia -Will continue with iron supplementation Nausea , vommiting, diarrhea: No active symtoms at present GI DVT prophylaxis Full code Problem List: 1. Pneumonia 2. Anemia Pain Ratin Pain Location: none Pain Goal: Remain pain free Pain Plan: pathway Tomorrow's Labs & Rationales: none
[2017-12-30] MEDS ORDERED: KEFLEX500 M1 PO ×2 (10:32→12:43)
[2017-12-30] MEDS ORDERED: AZITHROMYCIN500 M3 PO (12:42)
[2017-12-30 13:59] VITALS: BP 120/72
== END 2017-12-30 14:53 | DRG 139 ==
LOC: ERH 16:34 → ERHI 19:15 → 2NA 19:15 → ENRESERV 20:53 → ENTRNSPT 21:18 → 2NA 21:19 → EDTRNSPTSTS 21:31 → 2NA 21:49 → CMPTRNSPT 21:55 → 2NA 12-27 07:36 → DELTRNSPT 12-28 18:52 → ENTRNSPT 12-28 18:57 → EDTRNSPT 12-28 18:59 → EDTRNSPTSTS 12-28 18:59 → CMPTRNSPT 12-28 19:19 → 2NA 12-29 21:01 → ENTRNSPT 12-30 14:21 → EDTRNSPT 12-30 14:45 → EDTRNSPTSTS 12-30 14:45 → EDTRNSPT 12-30 14:47 → 2NA 12-30 14:53 → CMPTRNSPT 12-30 15:17
PROVIDERS: Physician Assistant Medical; Preventive Medicine Addiction Medicine; Student in an Organized Health Care Education/Training Program
DX: J18.9 Pneumonia, unspecified organism (principal); R00.0 Tachycardia, unspecified; D50.9 Iron deficiency anemia, unspecified; J45.909 Unspecified asthma, uncomplicated; Z87.891 Personal history of nicotine dependence; N92.0 Excessive and frequent menstruation with regular cycle; R09.02 Hypoxemia; K52.9 Noninfective gastroenteritis and colitis, unspecified; Z88.6 Allergy status to analgesic agent; R11.2 Nausea with vomiting, unspecified
CPT/HCPCS: 2NAP; 2NASP; 36415; 36592; 71046; 81001; 82436; 87015; 87040; 87045; 87070; 87449; 87450; 87899; 87899-59; 93005; 93010; 96361; 96374; J0131; J0456; J0696; J1650; J2405; J3250; J7040